=== PATIENT | male | born 1955 | race Caucasian/White ===

== ENCOUNTER → 2023-08-29 | Outpatient (CLI) | payer MEDICARE, OTHER ==
[~2023-08-29] MED LIST: B-121000 MCG PO; DRISDOL50000 IU PO; EPA FISH OIL1 SGL PO; FLOMAX 0.40.4 MG/CAP; FLONASEALLERGY NS; LEVAQUIN 5500 MG/TA1 PO; MOBIC15 MG PO; MYRBETR25MG PO; OMNICEF 300MG300 MG PO; PYRIDIUM 100MG100 MG PO; REQUIP XL2 MG PO; SINEMET 25/101 UDTAB PO; TRIAM OI 80 0.025 TOP; VITAMIN D 50,1.25 MG PO
== END ==
LOC: MHCPAIN 14:23
DX: M54.50 Low back pain, unspecified (principal); M51.36 Other intervertebral disc degeneration, lumbar region; G20.B1 Parkinson's disease with dyskinesia, without mention of fluctuations
CPT/HCPCS: G0463

== ENCOUNTER 2023-11-21 10:15 | Outpatient (RCR) | payer MEDICARE, OTHER | END 2023-12-09 13:20 | disposition still patient (30) | LOC: WSST 10:15 | DX: R49.0 Dysphonia (principal); F80.89 Other developmental disorders of speech and language; G20.A1 Parkinson's disease without dyskinesia, without mention of fluctuations ==

== ENCOUNTER → 2023-12-19 | Outpatient (CLI) | payer MEDICARE, OTHER | LOC: MHCPAIN 10-31 13:22 | DX: M17.11 Unilateral primary osteoarthritis, right knee (principal); G20.B1 Parkinson's disease with dyskinesia, without mention of fluctuations | CPT/HCPCS: G0463 ==

== ENCOUNTER 2024-03-05 01:01 | Inpatient (IN) | payer MEDICARE, OTHER ==
[~2024-03-05] VITALS: Ht 180.3 cm; Wt 74.5 kg
[~2024-03-05 01:01] MED LIST changes: +ASPIRIN 81M81 MG/TA2 PO; +LYRICA 25MG CAP25 MG PO; +PLAVIX 75MG TAB75 MG PO; +ROBAXIN 50500 MG/TAB PO; +ULTRAM 50MG TAB50 MG PO
[2024-03-05 01:48] LABS: BASO % 0.4 % (0.0-2.0); EOS # 0.1 K/mm3 (0.0-0.7); EOS % 1.1 % (0.0-4.0); GRAN # 7.5 K/mm3 (1.4-6.5); GRAN % 76.3 % (42.2-75.2); HEMOGLOBIN 13.8 g/dl (13.5-18.0); LYMPH # 1.3 K/mm3 (1.2-3.4); LYMPH % 13.4 % (20.0-51.0); MEAN CELL VOLUME 90 fl (80.0-100.0); MEAN CORPUSCULAR HEMOGLOBIN 30 pg (27-31); MEAN CORPUSCULAR HGB CONC 34 g/dl (33.0-37.0); MEAN PLATELET VOLUME 8.8 fl (7.4-10.4); MONO # 0.8 K/mm3 (0.1-0.6); MONO % 8.4 % (1.7-9.3); PLATELET COUNT 304 K/mm3 (130-400); RED BLOOD COUNT 4.54 M/mm3 (4.20-5.60); REDCELL DISTRIBUTION WIDTH-CV 11.9 % (11.5-14.5)
[2024-03-05 01:53] LABS: INR 1.2 (0.8-3.0); PROTHROMBIN TIME 12.6 SECONDS (9.7-12.8)
[2024-03-05 02:05] LABS: ALBUMIN 3.8 g/dL (3.4-4.8); ALKALINE PHOSPHATASE 92 U/L (40-150); ANION GAP 11 mmol/L (7-16); AST,SGOT 11 U/L (5-34); BILIRUBIN,TOTAL 0.4 mg/dL (0.2-1.2); BLOOD UREA NITROGEN 29 mg/dL (8-26); CHLORIDE 109 mEq/L (98-107); CREATININE, serum 0.81 mg/dL (0.72-1.25); GLUCOSE 102 mg/dL (70-99); SODIUM 142 mEq/L (136-145); TOTAL PROTEIN 6.4 g/dl (6.2-8.1)
[2024-03-05 02:14] LABS: ALANINE AMINOTRANSFERASE < 6 U/L (0-55)
[2024-03-05 02:16] LABS: COLLECTION METHOD CATHETER
[2024-03-05 02:31] LABS: PH 8.5 (5.0-8.5); URINE APPEARANCE TURBID (CLEAR/HAZY); URINE BLOOD 2+ (NEGATIVE); URINE COLOR RED (YELLOW); URINE GLUCOSE TRACE (NEGATIVE); URINE KETONE NEGATIVE (NEGATIVE); URINE NITRATE POSITIVE (NEGATIVE); URINE PROTEIN(semi-quant) 3+ (NEGATIVE); URINE UROBILINOGEN 0.2 E.U/dL (0.2-1.0)
[2024-03-05 02:47] LABS: LIPASE 69 U/L (8-78)
[2024-03-05] MEDS ORDERED: Iohexol 300 - 100 ML VIAL IV ONE (02:58)
[2024-03-05] MEDS ORDERED: NS 50 ML IV SCH (02:59)
[2024-03-05] MEDS ORDERED: cefTRIAXone 2 G in Water For Injection,Sterile 20 ML IV ONE (03:30)
[2024-03-05] MEDS ORDERED: NS Irrig Soln 3000 ML SOLN IR PRN ×2 (03:53→09:45)
[2024-03-05] MEDS ORDERED: Ondansetron 4 MG/2 ML VIAL IV PRN (04:15)
[2024-03-05] MEDS ORDERED: NS 1,000 ML IV SCH (04:15)
[2024-03-05] MEDS ORDERED: Acetaminophen 325 MG TAB PO PRN (04:15)
[2024-03-05 05:25] VITALS: BP 120/74; PULSE 66; TEMP 97.8
--- NOTE | 2024-03-05 05:30 | NUR ---
ALEKSANDRA ARRIVED TO UNIT DROWSY, AROUSABLE TO NAME. PATIENT IS ORIENTED X3. CBI INFUSING, GROSS HEMATURIA NOTED IN VALDEZ CATHETER, VALDEZ CATHETER BAG FULL AND IMMEDIATLY DRAINED UPON ARRIVAL, WITH AN OUTPUT OF 3800ML. PATIENT TURNED FOR SKIN CHECK/ASSESSMENT, PATIENT HAS DRY BOWEL MOVEMENT TO SACRUM, REDNESS, AND DRIED BLOOD PENIS, SCROTUM AND THIGHS. PATIENT CLEANED UP, FALL PRECAUTIONS PUT IN PLACE. UPON SKIN CHECK, PATIENTS NAVAL WITH YELLOW/GREEN DISCHARGE, HAIR TO ABDOMEN HARD AND CRUSTED. PATIENT CLEANED, CBI INFUSING, IV FLUIDS INITIATED.
[2024-03-05] MEDS ORDERED: Carbidopa/Levodopa CR 25-100MG TAB PO SCH (06:00)
[2024-03-05 08:00] VITALS: BP 109/64; PULSE 66; TEMP 97.7
[2024-03-05] MEDS ORDERED: Clopidogrel 75 MG TAB PO SCH ×2 (09:00→10:00)
[2024-03-05] MEDS ORDERED: Cyanocobalamin (Vit B-12) 1,000 MCG TAB PO SCH (09:00)
[2024-03-05] MEDS ORDERED: Omega-3 Fatty Acid Esters (OTC) 1,000 MG CAP PO SCH (09:00)
[2024-03-05] MEDS ORDERED: Methocarbamol 500 MG TAB PO SCH (09:00)
[2024-03-05] MEDS ORDERED: Famotidine 20 MG TAB PO SCH (09:00)
--- NOTE | 2024-03-05 09:00 | NUR ---
Patient drowsy but arousable, denies pain or shortness of breath. CBI in place, draining pink to red urine with occasional clots. Bed in lowest position with call light within reach, bed alarm on.
[2024-03-05 11:34] VITALS: BP 107/67; PULSE 68; TEMP 97.3
--- NOTE | 2024-03-05 11:57 | NUR ---
[employer] spoke with Wilian at [facility] and requested she fax a copy of patient's DPOA-HC.
--- NOTE | 2024-03-05 14:10 | NUR ---
Call to hospitalist to notify that med rec is up to date and per med rec and patient he no longer takes robaxin.
--- NOTE | 2024-03-05 14:18 | NUR ---
Social work student contacted Pt by phone. Pt is from [facility] assisted living. Pt's , Tahira (p# [phone]), also spoke with CELESTINA student on phone. Pt uses a rollator and wheelchair. Pt is assisted with bathing, going to the restroom, etc. by staff at [facility]. Pt's is primary on DPOA. Pt sees Efraín for PCP and uses [facility] [address] for pharmacy. CELESTINA student sent updates to [facility]. Discharge plan: [facility]
--- NOTE | 2024-03-05 15:34 | NUR ---
coke worker attended multidisciplinary team meeting and is recommending home health. Everyone is in agreement with this plan. CELESTINA met with patient and his to discuss discharge plan. CELESTINA provided [email or web address] list of home health. Patient and explained patient currently has [facility] for PT and just graduated from their OT and wound care. CELESTINA asked if they would like to continue with [facility] and both agreed. CELESTINA Araya faxed referral to [facility]. Discharge plan: Return to [facility] with [facility]
[2024-03-05 15:39] VITALS: BP 110/71; PULSE 76; TEMP 97.9
[2024-03-05 16:32] VITALS: BP_SYST 110
--- NOTE | 2024-03-05 20:00 | NUR ---
PATIENT IS A&O. VSS. HX OF [place] AND LIKES TO LEAN TO RIGHT SIDE. PATIENT FROM [facility], FELL X1 WEEK AGO. NOTED LARGE BRUISE TO RIGHT EYE FROM FALL. PATIENT IS WEAK. PT/OT CONSULTED. IV FLUIDS INFUSING VIA PUMP INTO LEFT FORARM IV. VALDEZ TO DD WITH CBI INFUSING AT MOD TO FAST RATE, URINE DARK RED TO PUNCH COLORED WITH LOTS OF TISSUE CLOTS. POSITIVE UTI, GETTING IV ROCEPHIN. SCD'S TO BLE. HEAD TO TOE ASSESSMENT COMPLETE. HS MEDS GIVEN. NO OTHER NEEDS. CALL LIGHT IN REACH. BED ALARM ON.
[2024-03-05 20:07] VITALS: BP 105/59; PULSE 79; TEMP 97.8
[2024-03-05] MEDS ORDERED: ROPINIROLE 2 MG PO SCH (21:00)
[2024-03-05] MEDS ORDERED: Pregabalin 50 MG CAP PO SCH (21:00)
[2024-03-06] VITALS (12 sets, daily range): BP systolic 97–132; BP diastolic 62–74; PULSE 56–91; TEMP 97.4–98.2
[2024-03-06] MEDS ORDERED: cefTRIAXone 1 G in Water For Injection,Sterile 10 ML IV SCH (06:00)
[2024-03-06 07:15] LABS: BASO % 0.6 % (0.0-2.0); EOS # 0.1 K/mm3 (0.0-0.7); GRAN # 1.6 K/mm3 (1.4-6.5); GRAN % 51.2 % (42.2-75.2); LYMPH % 32.4 % (20.0-51.0); MEAN CELL VOLUME 92 fl (80.0-100.0); MEAN CORPUSCULAR HGB CONC 32 g/dl (33.0-37.0); MEAN PLATELET VOLUME 9.2 fl (7.4-10.4); MONO # 0.4 K/mm3 (0.1-0.6); MONO % 11.5 % (1.7-9.3); PLATELET COUNT 223 K/mm3 (130-400); RED BLOOD COUNT 3.52 M/mm3 (4.20-5.60)
[2024-03-06 07:22] LABS: CALCIUM 7.9 mg/dL (8.4-10.2); CREATININE, serum 0.7 mg/dL (0.72-1.25); POTASSIUM 3.6 mEq/L (3.5-4.5)
[2024-03-06 07:48] LABS: HEMATOCRIT 32.4 % (42.0-52.0); HEMOGLOBIN 10.5 g/dl (13.5-18.0); MEAN CORPUSCULAR HEMOGLOBIN 30 pg (27-31)
--- NOTE | 2024-03-06 10:08 | NUR ---
Social work student sent updates to [facility] and [facility].
[2024-03-06] MEDS ORDERED: traMADol 50 MG TAB PO PRN (11:15)
[2024-03-06 13:14] LABS: HEMOGLOBIN 11.6 g/dl (13.5-18.0); MEAN CELL VOLUME 91 fl (80.0-100.0); MEAN CORPUSCULAR HEMOGLOBIN 31 pg (27-31); MEAN CORPUSCULAR HGB CONC 34 g/dl (33.0-37.0); MEAN PLATELET VOLUME 8.6 fl (7.4-10.4); PLATELET COUNT 245 K/mm3 (130-400)
[2024-03-06 13:15] LABS: HEMATOCRIT 34.6 % (42.0-52.0)
--- NOTE | 2024-03-06 22:00 | NUR ---
PT C/O CATHETER LEAKING AROUND INSERTION SITE, IRRIGATED WITH STERILE H2O, LARGE AMT OF CLOTS OUT, URINE [place] RED, INCREASED CBI RATE TO MODERATE RATE.
[2024-03-07] VITALS (10 sets, daily range): BP systolic 103–136; BP diastolic 64–73; PULSE 63–86; TEMP 96.5–98
[2024-03-07 06:07] LABS: BASO % 0.2 % (0.0-2.0); EOS # 0.2 K/mm3 (0.0-0.7); EOS % 3.9 % (0.0-4.0); GRAN # 2.3 K/mm3 (1.4-6.5); GRAN % 55.5 % (42.2-75.2); LYMPH # 1.2 K/mm3 (1.2-3.4); LYMPH % 28.2 % (20.0-51.0); MEAN CELL VOLUME 91 fl (80.0-100.0); MEAN CORPUSCULAR HEMOGLOBIN 30 pg (27-31); MEAN CORPUSCULAR HGB CONC 33 g/dl (33.0-37.0); MEAN PLATELET VOLUME 9.4 fl (7.4-10.4); MONO # 0.5 K/mm3 (0.1-0.6); PLATELET COUNT 212 K/mm3 (130-400); RED BLOOD COUNT 3.31 M/mm3 (4.20-5.60); REDCELL DISTRIBUTION WIDTH-CV 12.1 % (11.5-14.5)
[2024-03-07 06:17] LABS: HEMATOCRIT 30.1 % (42.0-52.0)
[2024-03-07 06:28] LABS: CALCIUM 8.1 mg/dL (8.4-10.2); CREATININE, serum 0.62 mg/dL (0.72-1.25); POTASSIUM 3.5 mEq/L (3.5-4.5)
--- NOTE | 2024-03-07 06:34 | NUR ---
URINE LIGHT PINK COLORED THIS AM, SMALL AMT OF CLOTS REMAIN, NO FURTHER IRRIGATION REQUIRED, CBI RATE DECREASED FROM MODERATE TO SLOW RATE. NO C/O PAIN OR DISCOMFORT THIS AM. RESTING WELL. INT PATENT/SECURE TO [facility].
--- NOTE | 2024-03-07 08:57 | NUR ---
Patient resting in bed. Alert and oriented. Working on breakfast tray.[place] nausea. Denies pain at rest. Lopes to DD with CBI to slow rate. Tea color output with sediment present. Int. Heels floated. Repositioned in bed. Call light in reach
--- NOTE | 2024-03-07 10:20 | NUR ---
rounded, plan of care reviewed. Called and plan of care reviewed. CBI slowed even further, goal to stop CBI today and patient tolerates.
--- NOTE | 2024-03-07 11:30 | NUR ---
PATIENT WAS 2 ASSISTED TO THE CHAIR. VERY WEAK ON HIS FEET. GAIT BELT AND WALKER USED. ROUNDED AND PLAN OF CARE REVIEWED. COURTNEY BACON PER ORDERS. PATIENT TOELRATED WELL. HIGH FALL RISK PROTOCOL FOLLOWED
--- NOTE | 2024-03-07 12:37 | NUR ---
Data: Patient accepted spiritual care visit offered during Spike [employer] rounds. Patient recounted the events that led him to be hospitalized. Patient was eating breakfast. Assessment: Patient is hopeful for a cure/solution to his illness. Patient is hopeful for a knee surgery once current illness is cared for. Plan of Care: Spike Driver offered supportive listening and prayer. Patient expressed his thanks for the visit. Chaplains will remain available as needed/requested while Patient is admitted to this hospital.
[2024-03-07] MEDS ORDERED: Ergocalciferol 1.25 MG (50,000 UNITS) CAPSULE PO SCH (13:15)
--- NOTE | 2024-03-07 13:15 | NUR ---
Patient up in chair eating lunch. Orders for VIT D as requested. Not yet voided.
--- NOTE | 2024-03-07 15:54 | NUR ---
Patient 2 assisted to the bathroom, unable to have BM. He has voided in urinal x1. Patient a heavy 2 assist with walker. gaitbelt. His at bedside. He is tolerating meals. denies nausea. high fall risk followed.
--- NOTE | 2024-03-07 16:40 | NUR ---
relief worker faxed clinical updates to [facility] and [facility]
--- NOTE | 2024-03-07 17:41 | NUR ---
6 bottle routine completed. He completed without difficulty. Dinner ordered. His at bedside. and made aware of completion of 6 bottle. He remains in chair breif on. call light in reach
--- NOTE | 2024-03-07 18:57 | NUR ---
Patient sitting up in chair with his ipad, finishing dinner. Bedside report to Elizabeth to resume cares
[2024-03-08] VITALS: BP_SYST 125
[2024-03-08 00:02] VITALS: BP 125/69; BP_SYST 129; PULSE 68; TEMP 97.9
[2024-03-08 04:02] VITALS: BP 127/73; PULSE 60; TEMP 97.4
[2024-03-08 04:26] VITALS: BP_SYST 127
[2024-03-08 06:25] LABS: HEMOGLOBIN 10.2 g/dl (13.5-18.0); MEAN CELL VOLUME 89 fl (80.0-100.0); MEAN CORPUSCULAR HEMOGLOBIN 30 pg (27-31); MEAN CORPUSCULAR HGB CONC 34 g/dl (33.0-37.0); MEAN PLATELET VOLUME 9.1 fl (7.4-10.4); PLATELET COUNT 203 K/mm3 (130-400); RED BLOOD COUNT 3.36 M/mm3 (4.20-5.60)
[2024-03-08 06:35] LABS: CALCIUM 7.9 mg/dL (8.4-10.2); CREATININE, serum 0.64 mg/dL (0.72-1.25); POTASSIUM 3.2 mEq/L (3.5-4.5)
--- NOTE | 2024-03-08 06:45 | NUR ---
appears to be sleeping, bedside shift repeort received from ZAC Johnson
--- NOTE | 2024-03-08 07:50 | NUR ---
awake now resting in bed, has been incontinent of urine, incontinent care provided and he was assisted out of bed and then into recliner, breakfast ordered, he moves very slow to get out of bed and needs some assistance with standing from bed, he states this is normal for him, denies needs at this time
[2024-03-08 07:56] VITALS: BP 130/76; PULSE 63; TEMP 97.4
[2024-03-08 08:07] VITALS: BP_SYST 130
[2024-03-08] MEDS ORDERED: CEFTIN500 MG PO (08:45)
--- NOTE | 2024-03-08 11:15 | NUR ---
discharge instructions given to patient and his , verbalizes understanding
--- NOTE | 2024-03-08 11:30 | NUR ---
discharged per WC
--- NOTE | 2024-03-12 15:51 | NUR ---
workers compensation claims analyst confirmed with Jimi at [facility] that they received orders on 03/08/24 and saw patient on 03/10/24 to start services for skilled home health.
== END 2024-03-08 11:30 | disposition home or self-care (01) | DRG 690 ==
LOC: COL.ER 01:01 → SURG 04:42
PROVIDERS: Emergency Medicine; Physician Assistant; ADMIT Internal Medicine
DX: N30.91 Cystitis, unspecified with hematuria (principal); G20.A1 Parkinson's disease without dyskinesia, without mention of fluctuations; N40.0 Benign prostatic hyperplasia without lower urinary tract symptoms; N20.0 Calculus of kidney; I73.9 Peripheral vascular disease, unspecified; R33.9 Retention of urine, unspecified; Z90.79 Acquired absence of other genital organ(s); Z79.899 Other long term (current) drug therapy; Z95.820 Peripheral vascular angioplasty status with implants and grafts; Z79.82 Long term (current) use of aspirin; Z79.02 Long term (current) use of antithrombotics/antiplatelets; S00.11XA Contusion of right eyelid and periocular area, initial encounter; W19.XXXA Unspecified fall, initial encounter
CPT/HCPCS: J0696; J7030; Q9967